=== PATIENT | female | born 1930 | race Caucasian/White ===

== ENCOUNTER 2017-04-05 23:16 | Emergency (ER) | payer MEDICARE, OTHER ==
[2017-04-06 00:39] LABS: APPEARANCE CLEAR (CLEAR); BILIRUBIN NEGATIVE (NEGATIVE); COLOR YELLOW (YELLOW); GLUCOSE NEGATIVE (NEGATIVE); KETONE NEGATIVE (NEGATIVE); LEUKOCYTE ESTERASE NEGATIVE (NEGATIVE); NITRITE NEGATIVE (NEGATIVE); PROTEIN NEGATIVE (NEGATIVE); UROBILINOGEN NORMAL (NORMAL)
== END 2017-04-06 01:07 | disposition home or self-care (01) ==
LOC: D.ER 23:16
PROVIDERS: Nurse Practitioner Acute Care
DX: S60.222A Contusion of left hand, initial encounter (principal); S70.02XA Contusion of left hip, initial encounter; X58.XXXA Exposure to other specified factors, initial encounter; Y93.89 Activity, other specified; Y92.89 Other specified places as the place of occurrence of the external cause; M06.9 Rheumatoid arthritis, unspecified

== ENCOUNTER 2017-06-03 20:24 | Emergency (ER) | payer MEDICARE, OTHER | END 2017-06-03 20:25 | LOC: D.ER 20:24 | DX: Z02.9 Encounter for administrative examinations, unspecified (principal) ==

== ENCOUNTER 2017-08-16 22:09 | Emergency (ER) | payer MEDICARE, OTHER ==
[2017-08-16 22:46] LABS: BASOPHILS 0.3 % (0-2); EOSINOPHILS 0.9 % (0-7); HEMATOCRIT 32.7 % (36.0-48.0); HEMOGLOBIN 10.9 g/dL (12-16); LYMPHOCYTES 37.6 % (15-50); MCH 31.3 pg (26.0-34.0); MCHC 33.3 g/dL (31.0-37.0); MEAN PLATELET VOLUME 9.3 fL (7.4-10.4); MONOCYTES 7.8 % (2-11); NEUTROPHILS 53.4 % (40-80); PLATELET COUNT 207 10x3/uL (130-400); RBC 3.48 10x6/uL (4.00-5.40); RDW 13.8 % (11.5-14.5); WBC 7.7 10x3/uL (4.8-10.8)
[2017-08-16 23:02] LABS: ALBUMIN 3.7 g/dL (3.4-5.0); ANION GAP 13.5 mmol/L (8-16); BILIRUBIN - TOTAL 0.3 mg/dL (0.2-1.3); CALCIUM 9.1 mg/dL (8.5-10.1); CARBON DIOXIDE 27.6 mmol/L (21.0-32.0); POTASSIUM - SERUM 4.1 mmol/L (3.5-5.1); PROTEIN - SERUM 7.1 g/dL (6.4-8.2)
== END 2017-08-17 00:25 | disposition home or self-care (01) ==
LOC: D.ER 22:09
PROVIDERS: Family Medicine
DX: G24.9 Dystonia, unspecified (principal)

== ENCOUNTER 2017-10-09 22:37 | Emergency (ER) | payer MEDICARE, OTHER | END 2017-10-10 00:28 | disposition home or self-care (01) | LOC: D.ER 22:37 | DX: G24.9 Dystonia, unspecified (principal) ==

== ENCOUNTER 2017-11-08 13:31 | Emergency (ER) | payer MEDICARE, OTHER ==
[2018-01-11 16:35] VITALS: BMI 19.6
== END 2017-11-08 14:52 | disposition home or self-care (01) ==
LOC: D.ER 13:31
DX: L03.113 Cellulitis of right upper limb (principal)

== ENCOUNTER 2017-12-29 12:09 | Emergency (ER) | payer MEDICARE, OTHER ==
[2018-01-11 16:35] VITALS: BMI 19.6
== END 2017-12-29 15:08 | disposition home or self-care (01) ==
LOC: D.ER 12:09
DX: S01.112A Laceration without foreign body of left eyelid and periocular area, initial encounter (principal); W01.0XXA Fall on same level from slipping, tripping and stumbling without subsequent striking against object, initial encounter; Y93.89 Activity, other specified; Y92.013 Bedroom of single-family (private) house as the place of occurrence of the external cause; S00.83XA Contusion of other part of head, initial encounter; M17.0 Bilateral primary osteoarthritis of knee; M25.562 Pain in left knee; M25.561 Pain in right knee

== ENCOUNTER 2018-01-09 13:20 | Emergency (ER) | payer MEDICARE, OTHER ==
[2018-01-09 14:12] LABS: BASOPHILS 0.2 % (0-2); EOSINOPHILS 1.1 % (0-7); HEMATOCRIT 34.4 % (36.0-48.0); HEMOGLOBIN 11.1 g/dL (12-16); IMMATURE GRANULOCYTES 0.2 % (0-5); LYMPHOCYTES 16.4 % (15-50); MCH 30.7 pg (26.0-34.0); MCHC 32.3 g/dL (31.0-37.0); MEAN PLATELET VOLUME 8.8 fL (7.4-10.4); MONOCYTES 2.9 % (2-11); NEUTROPHILS 79.2 % (40-80); RBC 3.62 10x6/uL (4.00-5.40); RDW 13.6 % (11.5-14.5); WBC 11.2 10x3/uL (4.8-10.8)
[2018-01-09 14:14] LABS: PLATELET COUNT 305 10x3/uL (130-400)
[2018-01-11 16:35] VITALS: BMI 19.6
== END 2018-01-09 16:30 | disposition home or self-care (01) ==
LOC: D.ER 13:20
PROVIDERS: Family Medicine
DX: J20.9 Acute bronchitis, unspecified (principal)

== ENCOUNTER 2018-01-10 20:28 | Inpatient (IN) | payer MEDICARE, OTHER ==
[~2018-01-10] VITALS: Ht 165.1 cm; Wt 53.5 kg
--- NOTE | ~2018-01-10 | CN ---
PATIENT NAME:JOHANNA MILLS MEDICAL RECORD: [id number] : [birth year] LOCATION:[id number] ADMIT DATE: 01/11/18 ACCOUNT: [id number] CONSULTING PHYSICIAN: LAWANDA TODD MD REFERRING PHYSICIAN: ROSALINE BRAGA MD DATE OF CONSULTATION: 01/11/2018 CARDIOLOGY CONSULTATION DIAGNOSES: 1. Hypertensive urgency. 2. Pneumonia. HISTORY OF PRESENT ILLNESS: Mrs. Mills presents with shortness of breath, found to have systolic blood pressures in the 200 range. It does not appear that she is on anything for blood pressure at home. She was started on lisinopril 20 mg b.i.d., Norvasc 10 mg q. day, and clonidine p.r.n. Her systolic blood pressures are now in the 160 range. Troponin is normal. She has no ST-T changes on her EKG. She has no chest pain. PHYSICAL EXAMINATION: GENERAL APPEARANCE: Well-nourished, well-developed, appears stated age. Level of distress, comfortable. PSYCHIATRIC: Mental status, alert, normal affect. Orientation, oriented to time, place and person. EYES: Lids and conjunctiva, noninjected. No discharge, no pallor. ENT: Lips, teeth, gums, normal dentition. Oropharynx, no cyanosis, no pallor. NECK: Carotid arteries, bilateral normal upstroke, no bruits, no thrills. JUGULAR VEINS: No jugular venous pressure or distention. CERVICAL LYMPH NODES: Nontender, nonenlarged. THYROID: Not enlarged. Nontender. No nodules. LUNGS: Respiratory effort, unlabored. CHEST: Normal curvature. No thoracic deformity. No chest wall tenderness. Percussion, resonant. Auscultation, clear. No wheezes, no rales, no rhonchi. CARDIOVASCULAR: Precordial exam, nondisplaced. No heaves or pericardial thrills. Rate and rhythm, regular. Heart sounds, normal S1, normal S2. No S3, no gallop, no rub. Systolic murmur, not heard. Diastolic murmur, not heard. EXTREMITIES: No cyanosis, no edema. Peripheral pulses, full and equal in all extremities, except as noted. No bruits appreciated. ABDOMEN: Soft, nondistended. Normal aorta. No bruit. Nontender. No masses. Liver, nontender, no hepatomegaly. Spleen, nontender, no splenomegaly. MUSCULOSKELETAL: No joint tenderness. No joint swelling. No erythema. NEUROLOGICAL: Normal gait, normal strength, normal tone. SKIN: Warm and dry. REVIEW OF SYSTEMS: The patient reports easy bruising but reports no swollen glands. The patient reports no fever, no night sweats, no significant weight gain, no significant weight loss. No significant exercise tolerance. The patient reports no dry eyes, no irritation, no vision change. Patient reports no difficulty hearing and no ear pain. Patient reports no frequent nose bleeds or nose and sinus problems. Patient reports on arm pain on exertion. No shortness of breath while lying down. No history of heart murmur. Patient reports no cough, no wheezing or coughing up blood. Patient reports no abdominal pain, no vomiting. Normal appetite. No diarrhea and not vomiting blood. No nausea and no constipation. Patient reports no incontinence. No CONSULT REPORT [id number] LINAJOHANNA difficulty urinating. No hematuria. No increased frequency. Patient reports no muscle aches. No weakness, no arthralgias, no back pain. No swelling of the extremities. Patient reports no abnormal mole, no jaundice, no rashes. Reports no loss of consciousness. No weakness and no numbness. No seizures, dizziness, or headaches. The patient reports no depression, no sleep disturbance, feeling safe in a relationship and no alcohol abuse. Patient reports on fatigue. Reports no runny nose or sinus pressure. No itching, no hives, and no frequent sneezing. OVERALL IMPRESSION: Hypertension. At this time, her blood pressure is markedly better on the lisinopril and Norvasc combination, which was an excellent choice. She has no ST-T abnormalities. No cardiac symptomatology. Her shortness of breath is secondary to the pneumonia, which is being treated with antibiotics. At this time, no other cardiac workup or treatment will be necessary. TRANSINT:[id number] Voice Confirmation ID: [id number] DOCUMENT ID: [id number] LAWANDA TODD MD at 1849 CC: [id number] DICTATION DATE: 01/11/18 164 TRANSFER CLERK: 01/11/18 1748 DIS IN 01/12/18 [id number] [place] [id number]
[2018-01-10 21:03] LABS: BASOPHILS 0.1 % (0-2); EOSINOPHILS 0.4 % (0-7); HEMATOCRIT 33.8 % (36.0-48.0); IMMATURE GRANULOCYTES 0.3 % (0-5); LYMPHOCYTES 11.3 % (15-50); MCH 30.8 pg (26.0-34.0); MCHC 32.5 g/dL (31.0-37.0); MCV 94.7 fL (80.0-100.0); MEAN PLATELET VOLUME 8.5 fL (7.4-10.4); MONOCYTES 3.8 % (2-11); NEUTROPHILS 84.1 % (40-80); PLATELET COUNT 292 10x3/uL (130-400); RBC 3.57 10x6/uL (4.00-5.40); RDW 13.9 % (11.5-14.5)
[2018-01-10 21:09] LABS: WBC 14.2 10x3/uL (4.8-10.8)
[2018-01-10 21:21] LABS: ALBUMIN 3.3 g/dL (3.4-5.0); ANION GAP 12.8 mmol/L (8-16); BILIRUBIN - TOTAL 0.4 mg/dL (0.2-1.3); CALCIUM 9.1 mg/dL (8.5-10.1); CARBON DIOXIDE 28.2 mmol/L (21.0-32.0); CREATININE - SERUM 0.9 mg/dL (0.6-1.3); MAGNESIUM - SERUM 2.2 mg/dL (1.8-2.4)
[2018-01-10 22:42] LABS: CKMB 1.6 U/L (0.0-3.6); CREATINE KINASE 111 UL (21-215); TROPONIN-I < 0.017 ng/mL (0.000-0.060)
[2018-01-11 00:48] LABS: APPEARANCE CLEAR (CLEAR); BILIRUBIN NEGATIVE (NEGATIVE); COLOR YELLOW (YELLOW); GLUCOSE NEGATIVE (NEGATIVE); KETONE NEGATIVE (NEGATIVE); NITRITE NEGATIVE (NEGATIVE); PROTEIN NEGATIVE (NEGATIVE); SPECIFIC GRAVITY 1.015 (1.005-1.020); UROBILINOGEN NORMAL (NORMAL)
[2018-01-11 01:29] LABS: CKMB 1.6 U/L (0.0-3.6); CREATINE KINASE 104 UL (21-215)
[2018-01-11 01:30] LABS: TROPONIN-I < 0.017 ng/mL (0.000-0.060)
[2018-01-11 01:32] VITALS: BP 161/59; BMI 19.6
[2018-01-11 04:00] VITALS: BP 190/86
[2018-01-11 06:08] LABS: BASOPHILS 0.2 % (0-2); EOSINOPHILS 1.5 % (0-7); HEMATOCRIT 31.4 % (36.0-48.0); IMMATURE GRANULOCYTES 0.2 % (0-5); LYMPHOCYTES 33.5 % (15-50); MCH 30.3 pg (26.0-34.0); MCHC 31.8 g/dL (31.0-37.0); MCV 95.2 fL (80.0-100.0); MEAN PLATELET VOLUME 8.5 fL (7.4-10.4); MONOCYTES 7.3 % (2-11); NEUTROPHILS 57.3 % (40-80); PLATELET COUNT 260 10x3/uL (130-400); RDW 14.1 % (11.5-14.5)
[2018-01-11 06:14] LABS: WBC 8.2 10x3/uL (4.8-10.8)
[2018-01-11 06:47] LABS: CALC OSMOLALITY 281 mosm/kg (275-300); CALCIUM 9.2 mg/dL (8.5-10.1); CHLORIDE - SERUM 107 mmol/L (98-107); CKMB 1.9 U/L (0.0-3.6); CREATINE KINASE 122 UL (21-215); CREATININE - SERUM 0.9 mg/dL (0.6-1.3); GLUCOSE 94 mg/dL (74-106); POTASSIUM - SERUM 4.2 mmol/L (3.5-5.1); SODIUM 142 mmol/L (136-145); TROPONIN-I < 0.017 ng/mL (0.000-0.060); UREA NITROGEN 11 mg/dL (7-18); eGFR NON AFRICAN AMERICAN 62 mL/min (90-120)
[2018-01-11 08:12] VITALS: BP 172/61
[2018-01-11 13:01] LABS: CREATINE KINASE 131 UL (21-215)
[2018-01-11 13:06] LABS: TROPONIN-I < 0.017 ng/mL (0.000-0.060)
[2018-01-11 14:54] VITALS: BMI 19.6
[2018-01-11 16:35] VITALS: Ht 165.1 cm; Wt 53.5 kg
[2018-01-11 16:36] VITALS: BP 163/62
[2018-01-11 21:45] VITALS: BP 161/63
[2018-01-12 01:01] VITALS: BP 168/64
[2018-01-12 08:16] VITALS: BP 148/67
[2018-01-12] MEDS ORDERED: CATAPRES0.1 MG PO (11:28)
[2018-01-12] MEDS ORDERED: LISINOPRIL10 MG PO (11:28)
[2018-01-12] MEDS ORDERED: NORVASC10 MG PO (11:28)
[2018-01-12 13:02] VITALS: BP 150/62
== END 2018-01-12 13:38 | disposition home or self-care (01) | DRG 195 ==
LOC: D.ER 20:28 → D.MS 23:45 → OBSVTIME 23:45 → D.MS 01-11 15:41
PROVIDERS: Family Medicine
DX: J18.9 Pneumonia, unspecified organism (principal); F32.9 Major depressive disorder, single episode, unspecified; F41.9 Anxiety disorder, unspecified; I10 Essential (primary) hypertension